=== PATIENT | male | born 1990 | race Caucasian/White ===

== ENCOUNTER 2019-12-04 12:05 | Emergency (ER) | payer MEDICAID ==
[~2019-12-04] VITALS: Ht 180.3 cm; Wt 123.0 kg
[2019-12-04 14:05] VITALS: BP 155/87
--- NOTE | 2019-12-04 14:33 | NUR ---
Break RN. Imaging at bedside.
== END 2019-12-04 15:37 | disposition home or self-care (01) ==
LOC: ED 13:27
DX: R00.0 Tachycardia, unspecified (principal); Z20.828 Contact with and (suspected) exposure to other viral communicable diseases; J02.9 Acute pharyngitis, unspecified; R05 Cough; R50.9 Fever, unspecified; F17.200 Nicotine dependence, unspecified, uncomplicated
CPT/HCPCS: 71045; 99284; U0001